=== PATIENT | male | born 1950 | race Caucasian/White ===

== ENCOUNTER 2016-03-16 03:10 | Observation (INO) | payer OTHER ==
[~2016-03-16] VITALS: Ht 185.4 cm; Wt 123.5 kg
[~2016-03-16 03:10] MED LIST: DILA2TAB4 PO; FOLI1TAB PO; IBUP600 PO; LISIPOW PO; METH2.5 PO; PROM25TA5 PO; PROT40TA PO; TAMS0.4C67 PO; TOPA25TA8 PO; anti depressant PO
[2016-03-16 03:11] VITALS: BP 193/94; PULSE 110; RESP 20; TEMP 98; O2SAT 96
[2016-03-16] MEDS ORDERED: MORPHINE SULFATE 4 MG/ML INJ IV PUSH ONE (05:45)
[2016-03-16] MEDS ORDERED: SODIUM CHLORIDE 0.9% FLUSH 5 ML FLUSH IVF PRN ×2 (05:45→07:00)
[2016-03-16] MEDS ORDERED: ASPIRIN 325 MG TAB PO ONE (05:45)
[2016-03-16 05:50] VITALS: O2SAT 95
[2016-03-16] MEDS: NITROGLYCERIN 0.4 MG SL 25 TABS/BTL SL SCH ×3 (05:50→06:02)
[2016-03-16] MEDS ORDERED: LISI20TA3 PO (05:55)
[2016-03-16] MEDS ORDERED: PROM25TA5 PO (05:55)
[2016-03-16] MEDS ORDERED: METH5INJ SQ (05:55)
[2016-03-16] MEDS ORDERED: PROT40TA PO (05:55)
[2016-03-16] MEDS ORDERED: FOLI1TAB4 PO (05:55)
[2016-03-16] MEDS ORDERED: TOPA25TA8 PO (05:55)
[2016-03-16 06:04] VITALS: BP 175/82; PULSE 88; RESP 18; O2SAT 96
[2016-03-16 06:08] LABS: AUTOMATED NEUTROPHIL # 5.2 TH/MM3 (1.8-7.7); BASOPHIL % 0.5 % (0.0-2.0); EOSINOPHIL % 0.4 % (0.0-4.0); HEMATOCRIT 42.3 % (39.0-51.0); HEMO FLAGS DIFF FINAL; LYMPH % 23.2 % (9.0-44.0); LYMPHOCYTE # 1.8 TH/MM3 (1.0-4.8); MEAN CELL VOLUME 89.2 FL (80.0-100.0); MEAN CORPUSCULAR HEMOGLOBIN 30.5 PG (27.0-34.0); MEAN CORPUSCULAR HGB CONC 34.2 % (32.0-36.0); NEUT % 67.9 % (16.0-70.0); PLATELET COUNT 183 TH/MM3 (150-450); RED BLOOD COUNT 4.74 MIL/MM3 (4.50-5.90); RED CELL DISTRIBUTION WIDTH 14.2 % (11.6-17.2); WHITE BLOOD COUNT 7.7 TH/MM3 (4.0-11.0)
--- NOTE | 2016-03-16 06:14 | RADRPT ---
EXAM DATE/TIME: 03/16/2016 05:44 [facility] COMPARISON: CHEST SINGLE AP, February 14, 2012, 9:09. INDICATIONS : Pt having chest pain x 1 day. MEDICAL HISTORY : Hypertension. Hypercholesterolemia. Heart Murmur, Mitral valve prolapse SURGICAL HISTORY : Inguinal hernia repair. Bowel obstruction repair ENCOUNTER: Initial ACUITY: 1 day PAIN SCORE: 8/10 LOCATION: Bilateral chest FINDINGS: Cardiomegaly with left ventricular configuration. The central bronchopulmonary markings well delinea sera. There is opacity in the lateral left lower lung causing loss of delineation of the left heart b order near the apex. The right lung is clear. CONCLUSION: Left lower lung infiltrate laterally. Mild cardiomegaly. Westley Perez MD on March 16, 2016 at 6:12 Board Certified Radiologist. This report was verified electronically.
[2016-03-16 06:20] LABS: APTT (PATIENT) 25.7 SEC (24.3-30.1); PROTHROMBIN TIME - PATIENT 11.1 SEC (9.8-11.6)
[2016-03-16 06:33] LABS: ANION GAP 11 MEQ/L (5-15); BICARBONATE 24.5 MEQ/L (21.0-32.0); BLOOD UREA NITROGEN 18 MG/DL (7-18); CHLORIDE 104 MEQ/L (98-107); GLOMERULAR FILTRATION RATE 64 ML/MIN (>89); MAGNESIUM 2.1 MG/DL (1.5-2.5); POTASSIUM 3.8 MEQ/L (3.5-5.1); SODIUM (NA) 139 MEQ/L (136-145)
[2016-03-16 06:39] LABS: CREATINE KINASE 83 U/L (39-308)
[2016-03-16] MEDS ORDERED: LIDOCAINE VISCOUS 2% SOLN 15 ML UDC PO ONE (07:00)
[2016-03-16] MEDS ORDERED: MORPHINE SULFATE 4 MG/ML INJ IV PRN (07:00)
[2016-03-16] MEDS ORDERED: ACETAMINOPHEN/HYDROcodone 325 MG/7.5 MG TAB PO PRN (07:00)
[2016-03-16] MEDS ORDERED: ALUMINUM/MAGNESIUM/SIMETH 30 ML CUP PO ONE (07:00)
[2016-03-16] MEDS ORDERED: NITROGLYCERIN 0.4 MG SL 25 TABS/BTL SL PRN (07:00)
[2016-03-16] MEDS ORDERED: ONDANSETRON HCL 4 MG/2 ML VIAL IV PRN (07:00)
[2016-03-16] MEDS ORDERED: TEMAZEPAM 15 MG CAP PO PRN (07:00)
[2016-03-16] MEDS ORDERED: ALPRAZolam 0.25 MG TAB PO PRN (07:00)
--- NOTE | 2016-03-16 07:08 | PD ---
HPI Chief Complaint: Chest Pain Time Seen by Provider: 05:32 Travel History International Travel<30 days: No Contact w/Intl Traveler<30days: No Traveled to known affect area: No History of Present Illness HPI 65-year-old male onset of intermittent retrosternal chest pain for about a week. Changes in position seemed to provoke the pain. Sneezing is quite painful. The patient has hypertension and has the lisinopril has yielded no significant reduction in blood pressure. He has been compliant. He has hyperlipidemia. His father had aortic valve replacement however there is no family history of coronary artery disease otherwise. The patient quit smoking many many years ago. No pleuritic pain is reported. He's had no fever or cough. He does endorse history of hiatal hernia and is concerned pain could be related to that. PFSH Past Medical History Cardiovascular Problems: Yes (HX OF HEART MURMER AND MITRAL VALVE PROLAPSE) High Cholesterol: Yes Diminished Hearing: Yes (BILATERAL) Hypertension: Yes Immunizations Current: Yes Past Surgical History Abdominal Surgery: Yes (BOWEL OBSTRUCTION REPAIR AND HERNIA) Social History Alcohol Use: No Tobacco Use: No Substance Use: No Allergies-Medications (Allergen,Severity, Reaction): Coded Allergies: Amitriptyline (Verified Allergy, Severe, 03/16/16) Reported Meds & Prescriptions Reported Meds & Active Scripts Active Reported Phenergan (Promethazine HCl) 25 Mg Tab 25 Mg PO Q6H Topamax (Topiramate) 25 Mg Tab 25 Mg PO EVERY DAY EXCEPT TUE Protonix (Pantoprazole Sodium) 40 Mg Tab 40 Mg PO DAILY Methotrexate Inj 50 Mg/2 Ml Inj 8 Mg SQ Q 7D Folate (Folic Acid) 1 Mg Tab 1 Mg PO DAILY Lisinopril-Hctz 20-25 Mg Tab 1 Tab PO BID Review of Systems Except as stated in HPI: all other systems reviewed are Neg Physical Exam Narrative GENERAL: 55-year-old male pleasant well-nourished well-developed SKIN: Warm and dry. HEAD: Atraumatic. Normocephalic. EYES: Pupils equal and round. No scleral icterus. No injection or drainage. ENT: No nasal bleeding or discharge. Mucous membranes pink and moist. NECK: Trachea midline. No JVD. CARDIOVASCULAR: Regular rate and rhythm. No murmur appreciated. RESPIRATORY: No accessory muscle use. Clear to auscultation. Breath sounds equal bilaterally. No tenderness about the sternum or the anterior chest wall. GASTROINTESTINAL: Abdomen soft, nondistended. Hepatic and splenic margins not palpable. Tenderness to palpation epigastrium. MUSCULOSKELETAL: No obvious deformities. No clubbing. No cyanosis. No edema. NEUROLOGICAL: Awake and alert. No obvious cranial nerve deficits. Motor grossly within normal limits. Normal speech. PSYCHIATRIC: Appropriate mood and affect; insight and judgment normal. Data Data Last Documented VS Vital Signs Date Time Temp Pulse Resp B/P Pulse Ox O2 Delivery O2 Flow Rate FiO2 03/16/16 06:04 88 18 175/82 96 Nasal Cannula 3 03/16/16 03:11 98.0 Orders Electrocardiogram (03/16/16 ) Electrocardiogram (03/16/16 05:32) Basic Metabolic Panel (Bmp) (03/16/16 05:32) Ckmb (Isoenzyme) Profile (03/16/16 05:32) Complete Blood Count With Diff (03/16/16 05:32) Magnesium (Mg) (03/16/16 05:32) Prothrombin Time / Inr (Pt) (03/16/16 05:32) Act Partial Throm Time (Ptt) (03/16/16 05:32) Troponin I (03/16/16 05:32) Chest, Single Ap (03/16/16 05:32) Ecg Monitoring (03/16/16 05:32) Iv Access Insert/Monitor (03/16/16 05:32) Oximetry (03/16/16 05:32) Oxygen Administration (03/16/16 05:32) Aspirin (Aspirin) (03/16/16 05:45) Morphine Inj (Morphine Inj) (03/16/16 05:45) Sodium Chloride 0.9% Flush (Ns Flush) (03/16/16 05:45) Nitroglycerin Sl (Nitrostat Sl) (03/16/16 05:45) Activity Bed Rest With Brp (03/16/16 06:52) Vital Signs (Adult) Q4H (03/16/16 06:52) Cardiac Rhythm .As Directed (03/16/16 06:52) ^ Notify Dr: Other .PRN (03/16/16 06:52) ^ Notify . Parameters (03/16/16 06:52) Resp Oxygen Nasal Cannula (03/16/16 ) Ckmb (Isoenzyme) Profile (03/16/16 06:52) Ckmb (Isoenzyme) Profile (03/16/16 09:52) Troponin I (03/16/16 06:52) Troponin I (03/16/16 09:52) Electrocardiogram (03/16/16 06:52) Electrocardiogram (03/16/16 09:52) ^ Obtain (03/16/16 06:52) Sodium Chloride 0.9% Flush (Ns Flush) (03/16/16 07:00) Sodium Chloride 0.9% Flush (Ns Flush) (03/16/16 09:00) Acetamin-Hydrocod 325-7.5 Mg ([place] 7.5 (03/16/16 07:00) Morphine Inj (Morphine Inj) (03/16/16 07:00) Ondansetron Inj (Zofran Inj) (03/16/16 07:00) Ranitidine (Zantac) (03/16/16 09:00) Pantoprazole (Protonix) (03/16/16 09:00) Nitroglycerin Sl (Nitrostat Sl) (03/16/16 07:00) Temazepam (Restoril) (03/16/16 07:00) Alprazolam (Xanax) (03/16/16 07:00) Admit Order (Ed Use Only) (03/16/16 06:52) Al-Mag Hy-Si 40-40-4 Mg/Ml Liq (Mag-Al P (03/16/16 07:00) Lidocaine 2% Viscous (Xylocaine 2% Visco (03/16/16 07:00) Labs Laboratory Tests Test 03/16/16 05:50 White Blood Count 7.7 TH/MM3 Red Blood Count 4.74 MIL/MM3 Hemoglobin 14.5 GM/DL Hematocrit 42.3 % Mean Corpuscular Volume 89.2 FL Mean Corpuscular Hemoglobin 30.5 PG Mean Corpuscular Hemoglobin 34.2 % Concent Red Cell Distribution Width 14.2 % Platelet Count 183 TH/MM3 Mean Platelet Volume 7.1 FL Neutrophils (%) (Auto) 67.9 % Lymphocytes (%) (Auto) 23.2 % Monocytes (%) (Auto) 8.0 % Eosinophils (%) (Auto) 0.4 % Basophils (%) (Auto) 0.5 % Neutrophils # (Auto) 5.2 TH/MM3 Lymphocytes # (Auto) 1.8 TH/MM3 Monocytes # (Auto) 0.6 TH/MM3 Eosinophils # (Auto) 0.0 TH/MM3 Basophils # (Auto) 0.0 TH/MM3 CBC Comment DIFF FINAL Differential Comment Prothrombin Time 11.1 SEC Prothromb Time International 1.0 RATIO Ratio Activated Partial 25.7 SEC Thromboplast Time Sodium Level 139 MEQ/L Potassium Level 3.8 MEQ/L Chloride Level 104 MEQ/L Carbon Dioxide Level 24.5 MEQ/L Anion Gap 11 MEQ/L Blood Urea Nitrogen 18 MG/DL Creatinine 1.16 MG/DL Estimat Glomerular Filtration 64 ML/MIN Rate Random Glucose 116 MG/DL Calcium Level 8.8 MG/DL Magnesium Level 2.1 MG/DL Total Creatine Kinase 83 U/L Troponin I LESS THAN 0.02 NG/ML MDM Medical Decision Making Medical Screen Exam Complete: Yes Emergency Medical Condition: Yes Medical Record Reviewed: Yes Differential Diagnosis NSTEMI, unstable angina, coronary vasospasm, PE, PTX, aortic dissection, pericarditis, myocarditis, endocarditis, PNA, esophageal disease, aneurysm, musculoskeletal etiologies, anxiety, cocaine/sympathomimetic abuse Narrative Course EKG: sinus rate 99, no stemi, normal axis CXR: L lung infiltrate, otherwise normal CBC & BMP Diagram 03/16/16 05:50 Troponin undetectable The patient received GI cocktail. Hiatal hernia is a consideration. He also appears to have a lung base pneumonia on the left side. We'll prescribe azithromycin. Further cardiac evaluation in [facility] considered appropriate. Diagnosis Primary Impression: Chest pain Qualified Code: R07.9 - Chest pain, unspecified type Additional Impressions: PNA (pneumonia) Qualified Code: J18.1 - Pneumonia of left lower lobe due to infectious organism Hiatal hernia Additional Instructions: You have a choice when it comes to health care, and we are glad that you chose [facility]. Hopefully, we have met your expectations on today's visit. You are welcome to return to [facility] at any time, as we are committed to meeting the health care needs of our community. Med/Other Pt SpecificInfo: Prescription(s) given Mickey Tucker MD Mar 16, 2016 07:08
[2016-03-16] MEDS ORDERED: AZIT250T3 PO (07:09)
[2016-03-16] MEDS ORDERED: AZITHROMYCIN 250 MG TAB PO ONE (07:15)
[2016-03-16 07:18] VITALS: BP 163/88; PULSE 86; RESP 21; O2SAT 96
[2016-03-16] MEDS ORDERED: FAMOTIDINE 20 MG TAB PO SCH (09:00)
[2016-03-16] MEDS ORDERED: PANTOPRAZOLE SOD 40 MG DELAYED RELEASE TAB PO SCH ×2 (09:00→11:00)
[2016-03-16] MEDS ORDERED: RANITIDINE HCL 150 MG TAB PO SCH (09:00)
[2016-03-16] MEDS ORDERED: SODIUM CHLORIDE 0.9% FLUSH 5 ML FLUSH IVF SCH (09:00)
[2016-03-16] MEDS ORDERED: NON-FORMULARY DRUG (Lisinopril-Hctz 1 TAB) PO SCH (10:00)
[2016-03-16 10:01] LABS: CREATINE KINASE 61 U/L (39-308)
[2016-03-16] MEDS ORDERED: ACETAMINOPHEN 325 MG TAB PO ONE (10:15)
[2016-03-16] MEDS ORDERED: LISINOPRIL 20 MG TAB PO SCH (11:00)
[2016-03-16] MEDS ORDERED: HYDROCHLOROTHIAZIDE 25 MG TAB PO SCH (11:00)
[2016-03-16 11:24] LABS: CREATINE KINASE 59 U/L (39-308)
[2016-03-16 11:33] VITALS: BP 178/68; PULSE 87; RESP 13; O2SAT 98
[2016-03-16] MEDS ORDERED: RESP: ALBUTEROL 2.5 MG/IPRATROPIUM 0.5 MG NEB (PRN) INH (12:00)
[2016-03-16] MEDS ORDERED: REGADENOSON INJ 0.4 MG/5 ML SYR ONE (12:51)
--- NOTE | 2016-03-16 14:07 | EKG ---
Date Performed: 03/16/2016 Time Performed: 08:55:13 PTAGE: 65 years EKG: Sinus rhythm LOW QRS VOLTAGE IN EXTREMITY LEADS INFERIOR MYOCARDIAL INFARCTION ANTEROSEPTAL MYOCARDIAL INFARCTION ABNORMAL ECG PREVIOUS TRACING : 03/16/2016 03.35 Since previous tracing, no significant change noted DOCTOR: Nhan Tucker Interpretating Date/Time 03/16/2016 14:06:17
--- NOTE | 2016-03-16 14:29 | EKG ---
Date Performed: 03/16/2016 Time Performed: 03:35:04 PTAGE: 65 years EKG: Sinus rhythm WITH FIRST DEGREE AV BLOCK WITH OCCASIONAL SUPRAVENTRICULAR PREMATURE COMPLEXES LOW QRS VOLTAGE IN E XTREMITY LEADS ANTEROSEPTAL MYOCARDIAL INFARCTION POSSIBLE OLD INFERIOR MYOCARDIAL INFARCTION ABNORMA L ECG PREVIOUS TRACING : 02/14/2012 14.54 Since previous tracing, no significant change noted DOCTOR: Nhan Tucker Interpretating Date/Time 03/16/2016 14:28:17
[2016-03-16 15:12] VITALS: BP 140/84; PULSE 86; RESP 18; TEMP 97.4; O2SAT 95
--- NOTE | 2016-03-16 15:29 | RADRPT ---
EXAM DATE/TIME: 03/16/2016 12:12 [facility] COMPARISON: MYOCARDIAL PERF PHARM SPECT, GATED W/EF, February 15, 2012, 12:51. CHEST SINGLE AP, March 16, 2016 , 5:44. INDICATIONS : Intermittent retrosternal chest pain for one week. Angina. DOSE: 34.3 mCi Tc99m Myoview at stress. 10.9 mCi Tc99m Myoview at rest. 0.4 mg Lexiscan STRESS SYMPTOMS: Heart racing and abdominal pain. EJECTION FRACTION: 57% MEDICAL HISTORY : Hypertension. Heart murmur. SURGICAL HISTORY : Hernia repair. ENCOUNTER: Initial ACUITY: 1 week PAIN SCALE: 6/10 LOCATION: Retrosternal chest TECHNIQUE: The patient underwent pharmacologic stress with infusion of prescribed dose. Continuous ECG tracing was monitored during stress. Gated SPECT imaging was performed after stress and conventional SPECT i maging was performed at rest. The examination was performed on a SPECT/CT scanner, both attenuation and non-corrected datasets were reviewed. FINDINGS: DISTRIBUTION: The wall of maximal perfusion at stress is the anterior and lateral wall PERFUSION STUDY: The pattern of perfusion at stress is within normal limits. GATED STUDY: There is intact wall motion and thickening without hypokinetic or dyskinetic segments. CONCLUSION: Normal examination. RISK CATEGORY: Low (<1% Annual Mortality Rate) Héctor Moran MD on March 16, 2016 at 15:26 Board Certified Radiologist. This report was verified electronically.
--- NOTE | 2016-03-16 16:06 | TR ---
Date Performed: 03/16/2016 Time Performed: 13:03:11 DOCTOR: Jaret Carrizales DRUG LIST: CLINICAL HISTORY: CHEST PAIN REASON FOR TEST: CHEST PAIN REASON FOR ENDING: OBSERVATION: CONCLUSION: Lexiscan stress test was performed under standard four minute protocol. Radionuclide was injected one minute prior to ending the test. Developed racing of the heart and abdominal pain. Cindy PVCs were noted. No electrocardiographic abnormalities were present to suggest ischemia. Recover y was quick and uneventful with resolution of symptoms. Nuclear imaging and interpretation are neetu orr. COMMENTS:
[2016-03-16] MEDS ORDERED: ZITH250T PO (16:38)
--- NOTE | 2016-03-16 16:39 | HHI.DCPOC ---
Discharge Care Plan Diagnosis: (1) Chest pain (2) Lung infiltrate (3) GERD (gastroesophageal reflux disease) (4) Hypertension (5) Obesity Goals to Promote Your Health * To prevent worsening of your condition and complications * To maintain your health at the optimal level Directions to Meet Your Goals Take your medications as prescribed Follow your dietary instruction Follow activity as directed Keep your appointments as scheduled Take your immunizations and boosters as scheduled If your symptoms worsen call your PCP, if no PCP go to Urgent Care Center or Emergency Room Smoking is Dangerous to Your Health. Avoid second hand smoke Call the 24-hour hour crisis hotline for domestic abuse at [facility] Mar 16, 2016 16:38
--- NOTE | 2016-03-18 08:39 | MH ---
cc: ARTI SAEZ DATE OF ADMISSION: 03/16/2016 DATE OF : 1950 CHIEF COMPLAINT: Chest pain HISTORY OF PRESENT ILLNESS 65 old male who presents to the emergency department without history of coronary artery disease that complains of his blood pressure running high lately. He also complains of a tightness in his chest. This has been intermittent for couple days. It will last seconds at a time when occurs. It happens with exertion which could be as simple as just gentle walking. Happens with changing of his position, for instance sitting, going from a sitting position to a standing position. It hurts when he twists the torso. He at times is short of breath with these symptoms. No nausea or diaphoresis. He cannot recall any injury or trauma that could have caused his issues. 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 He denies history of coronary artery disease, he states that he had a heart catheterization in [place] in 2008. He states that he was told there were no blockages and that he had large arteries. He also had a nonischemic Lexiscan at this facility February 2012. He is followed by a hot braider. PRIMARY CARE PHYSICIAN His primary care physician is Dr. Pedro Yao. PAST MEDICAL HISTORY: 1. Hypertension 2. Mitral prolapse 3. Asthma 4. Gastroesophageal reflux disease 5. Diverticulitis 6. Bowel resection 2009 7. Peripheral neuropathy 8. Migraines 9. Rheumatoid arthritis. 10. He had episode of ventricular tachycardia 2011 during stress testing. Denies diabetes, coronary artery disease and hyperlipidemia. FAMILY HISTORY He thinks that his mother may have had cardiac stents but is not 100% sure. SOCIAL HISTORY The patient quit smoking 20 years ago prior to that he smoked half pack of cigarettes for 20 years. 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 PAST SURGICAL HISTORY Heart catheterization with intervention 2008. Bowel resection in 2009. ALLERGIES AMITRIPTYLINE MEDICATIONS medications include 1. Lisinopril/HCTZ. 2. Methotrexate injection once a week. 3. Protonix. 4. Folic acid. 5. Zithromax 6. Azithromycin in the emergency room. 7. Questionable pneumonia. REVIEW OF SYSTEMS GENERAL: Denies fevers or chills. Denies recent illnesses. HEAD, EYES, EARS, NOSE, AND THROAT: Denies headache, earache, sore throat, difficulty swallowing. CARDIOVASCULAR SYSTEM: Describes the discomfort as mentioned above. Denies diaphoresis. Has sensation of heart beating rapidly or irregularly. RESPIRATORY: Denies coughing, wheezing or hemoptysis. She has he has been a little short of breath. No inspirational chest discomfort. GASTROINTESTINAL: Denies nausea, vomiting, diarrhea, blood in stool. MUSCULOSKELETAL: He complained of chronic arthralgias with his rheumatoid arthritis. Denies calf pain or swelling. NEUROVASCULAR: Denies headache or dizziness. ENDOCRINE: Denies polyuria, polydipsia. HEMATOLOGIC: Denies easy bruising. SKIN: The skin denies rash or itching. PHYSICAL EXAMINATION VITAL SIGNS: Vital signs: In the emergency initially included blood pressure 193/94 is 110 which respirations 20, pulse oximetry 96% on room air and he was afebrile. Most recent vital signs include blood pressure 163/80, heart 86, respirations 21, pulse oximetry 96% on 3 liters nasal cannula. IN GENERAL: The patient seen in the examination room in no apparent stress. Pleasant. He speaks in clear and complete sentences. He is obese at 120 kg. HEAD, EYES, EARS, NOSE, AND THROAT: Head is atraumatic, normocephalic. NECK: Neck is supple without lymphadenopathy. Trachea is midline, no jugular venous distention or carotid bruits. CARDIOVASCULAR SYSTEM: Regular rate and rhythm without gallop or rub. Grade 2 systolic murmur at the sternal border. RESPIRATORY: He has mild extra wheeze at the right base. No rales or rhonchi. No use of accessory muscles. There is easily reproducible central chest wall discomfort. This is essentially discomfort that he has been having. GASTROINTESTINAL: Abdomen is nontender, nondistended. Bowel sounds normal. No guarding or rebound. No obvious pulsatile mass or bruit. No CVA tenderness. Strong femoral pulses bilaterally. MUSCULOSKELETAL: The patient is moving upper and lower extremities freely, no joint tenderness or edema. No calf tenderness or edema. No Homans' sign. Strong pulses in upper and lower extremities. NEUROVASCULAR: The patient is alert and oriented. Cranial nerves II through XII intact. No focal deficits and speech is clear. Skin: No rashes or normal. LABORATORY DATA CBC is unremarkable. Coagulation studies unremarkable. Basic metabolic panel essentially unremarkable. Serial cardiac enzymes normal x3. Single view chest x-ray read by radiologist as left lower lung inferolaterally. Mild cardiomegaly. EKG's have sinus rhythm with nonspecific inferior T-wave changes. No significant ST segment depression elevation. There is borderline first degree AV block. ASSESSMENT/PLAN: 1. Chest pain: The patient's discomfort appears be atypical. He does have some risks factors for coronary artery disease. He was seen by Dr. Mclaughlin in the chest pain center. He will undergo Lexiscan as he states that he cannot walk the treadmill with his rheumatoid arthritis. A stress test were to be unremarkable I will discharged home with instructions to follow up with his local physician Dr. Pedro Yao. 2. Hypertension, continue current medication. 3. Rheumatoid arthritis; continue his treatment as dictated by his physician. 4. Gastroesophageal reflux disease, continue current medications. 5. Obesity; The patient has been counseled on the importance of diet, exercise and weight loss. 6. Right lower lung infiltrates. The patient denies any coughing, but chest x-ray showed infiltrate per radiology. The patient was started on Zithromax and likely will be given prescription to complete the antibiotic course he will be advised to follow up with his physician to confirm resolution. 7. Asthma, he will have duoneb as needed. 8. Patient is stable at this time. He is agreeable to this plan. Dictated by JENN Borja MD ROSIE Ovalles/keith /11:28 AM /8:38 AM
== END 2016-03-16 20:11 | disposition home or self-care (01) ==
LOC: NEPC 03:10 → NEDA 06:55 → NEPHCDU 14:19
PROVIDERS: ADMIT Internal Medicine Interventional Cardiology; ATTEND Internal Medicine Interventional Cardiology
DX: R07.9 Chest pain, unspecified (principal); J18.1 Lobar pneumonia, unspecified organism; I10 Essential (primary) hypertension; J45.909 Unspecified asthma, uncomplicated; E78.00 Pure hypercholesterolemia, unspecified; K21.9 Gastro-esophageal reflux disease without esophagitis; H91.90 Unspecified hearing loss, unspecified ear; E78.5 Hyperlipidemia, unspecified; K44.9 Diaphragmatic hernia without obstruction or gangrene; R94.31 Abnormal electrocardiogram [ECG] [EKG]; M06.9 Rheumatoid arthritis, unspecified; E66.9 Obesity, unspecified; Z87.891 Personal history of nicotine dependence; Z68.35 Body mass index [BMI] 35.0-35.9, adult; Z90.49 Acquired absence of other specified parts of digestive tract
CPT/HCPCS: 71010; 78452; 80048; 82550; 83735; 84484; 85025; 85610; 85730; 93005; 93017; 96374; 99285; A9502; G0378; J2270; J2785

== ENCOUNTER → 2016-04-03 | Day surgery (SDC) | payer OTHER ==
[~2016-04-03] MED LIST changes: +AZIT250T3 PO; -DILA2TAB4 PO; -FOLI1TAB PO; +FOLI1TAB4 PO; -IBUP600 PO; +LACTATED RINGER'S 1000 ML INJ 1,000 ML ONE; +LISI20TA3 PO; -LISIPOW PO; -METH2.5 PO; +METH5INJ SQ; -PROM25TA5 PO; +PROPOFOL 500 MG/50 ML BTL IV ONE; -TAMS0.4C67 PO; -TOPA25TA8 PO; +ZITH250T PO; -anti depressant PO
== END | disposition home or self-care (01) ==
LOC: ESDC 09:29
PROVIDERS: ATTEND Internal Medicine Gastroenterology
DX: Z12.11 Encounter for screening for malignant neoplasm of colon (principal); Z80.0 Family history of malignant neoplasm of digestive organs; Q27.33 Arteriovenous malformation of digestive system vessel; K21.9 Gastro-esophageal reflux disease without esophagitis
CPT/HCPCS: 00740; 00810; 43235; 45380; 88305; J3010; J7120